=== PATIENT | male | born 1975 | race Caucasian/White ===

== ENCOUNTER 2017-05-16 10:30 | Day surgery (SDC) | payer OTHER ==
[2017-05-12 10:18] LABS: HEMATOCRIT 47.3 % (37.9-51.0); HEMOGLOBIN 16.6 g/dL (13.5-17.0); MEAN CORPUSCULAR HEMOGLOBIN 31.9 pg (27.0-33.4); MEAN CORPUSCULAR HGB CONC 35.1 g/dL (32.0-36.0); MEAN CORPUSCULAR VOLUME 91 fl (80-97); PLATELET COUNT 230 10^3/uL (150-450); WHITE BLOOD COUNT 8.8 10^3/uL (4.0-10.5)
[2017-05-12 10:41] LABS: ANION GAP 11 (5-19); BLOOD UREA NITROGEN 14 mg/dL (7-20); CALCIUM 10.2 mg/dL (8.4-10.2); CARBON DIOXIDE 21 mmol/L (22-30); CHLORIDE 108 mmol/L (98-107); GLUCOSE 88 mg/dL (75-110); POTASSIUM 4.9 mmol/L (3.6-5.0)
--- NOTE | 2017-05-12 12:36 | EKG REPORT ---
SEVERITY:- NORMAL ECG - SINUS RHYTHM : Confirmed by: Steven Gonzalez MD 12-May-2017 12:35:46
[~2017-05-16 10:30] MED LIST: ACETAMINOPHEN 325 MG TABLET PO PRN; CEFAZOLIN 2 GM/D5W RTU 2 GM/50 ML RTUPB IV PRN; DEXAMETHASONE SOD PHOSPHATE INJ 4 MG/1 ML VIAL ONE; KETOROLAC TROMETHAMINE 60 MG/2 ML SDV ONE; LACTATED RINGERS 1000 ML IV PRN; LIDOCAINE 0.5% INJ-PF (5 MG/ML) 50 ML SDV SUBCUT PRN; LIDOCAINE 2% INJ-PF (20 MG/ML) 2 ML AMPUL ONE; METOCLOPRAMIDE HCL INJ/PF 10 MG/2 ML SDV ONE; ONDANSETRON HCL INJ/PF 4 MG/2 ML SDV ONE; SUCCINYLCHOLINE CHLORIDE INJ 200 MG/10 ML VIAL ONE
[2017-05-16] MEDS ORDERED: BUPIVACAINE HCL 0.25 % INJ/PF (2.5 MG/1 ML) 30 ML VIAL ONE (10:43)
[2017-05-16] MEDS ORDERED: FENTANYL CITRATE INJ/PF 100 MCG/2 ML AMPUL ONE (13:19)
[2017-05-16] MEDS ORDERED: MIDAZOLAM 2 MG/2 ML INJ ONE (13:19)
[2017-05-16] MEDS ORDERED: PROPOFOL INJ 200 MG/20 ML VIAL IV ONE (13:20)
[2017-05-16] MEDS ORDERED: EPHEDRINE SULFATE INJ 50 MG/1 ML AMPULE ONE (13:20)
[2017-05-16] MEDS ORDERED: ACETAMINOPHEN 100 ML IV ONE ×2 (13:20)
--- NOTE | 2017-05-16 15:00 | Operative Report ---
Operative Report DATE OF SURGERY: 05/16/17 PREOPERATIVE DIAGNOSIS: Left inguinal hernia POSTOPERATIVE DIAGNOSIS: Left inguinal hernia OPERATION: Left inguinal hernia repair with mesh SURGEON: RODRIGO EGAN ANESTHESIA: GA TISSUE REMOVED OR ALTERED: Hernia sac COMPLICATIONS: None ESTIMATED BLOOD LOSS: Minimal INTRAOPERATIVE FINDINGS: Indirect inguinal hernia PROCEDURE: Informed consent was obtained. Patient was brought to the operating room placed on the operating room table in the supine position. After satisfactory induction of general anesthesia, patient's left groin was prepped and draped in usual sterile fashion. A transverse left groin incision was made. Dissection was carried down and the external oblique was opened along its fascial fibers thus opening the external inguinal ring. The cord was mobilized at the pubic tubercle. The ilioinguinal nerve was identified and preserved during the dissection. Dissection at the anterior aspect of the cord revealed an indirect inguinal hernia sac. The hernia sac was dissected to the level of the internal ring. Hernia sac was thick. It was opened. There were no incarcerated contents. High ligation of the sac was then performed at the level of the internal ring and the sac was excised. 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 The sling ends were brought back together in a sling-like configuration thus re-creating the internal inguinal ring. The mesh laid flat with excellent coverage. A single fixation suture was placed at the pubic tubercle. Hemostasis appeared excellent. Marcaine was injected. The external oblique was closed over the repair and the cord structures using running Vicryl suture. Venkatesh's fascia was closed with interrupted Vicryl sutures. Skin was closed with subcuticular running Monocryl suture. Patient tolerated procedure well with no apparent complications and was taken to the recovery area in stable condition.
[2017-05-16] MEDS ORDERED: OXYCODONE-ACETAMINOPHEN 5-325 MG TABLET PO PRN (15:03)
[2017-05-16] MEDS ORDERED: RINGERS SOLUTION,LACTATED 1,000 ML IV PRN (15:03)
[2017-05-16] MEDS ORDERED: ONDANSETRON HCL INJ/PF 4 MG/2 ML SDV IV PRN ×2 (15:03→15:14)
--- NOTE | 2017-05-16 15:03 | PDOC DISCHARGE SUMMARY ---
Discharge Summary (SDC) - Discharge Final Diagnosis: Left inguinal hernia Date of Surgery: 05/16/17 Discharge Date: 05/16/17 Condition: Good Treatment or Instructions: Left inguinal hernia repair with mesh. May discharge patient home when met discharge criteria. Follow-up with me in 2 weeks. Stay active but avoid strenuous activity. May shower tomorrow night. Keep Steri-Strips on. Prescriptions: Oxycodone HCl/Acetaminophen [Percocet 5-325 mg Tablet] 1 tab PO ASDIR PRN #25 tablet PRN Reason: Referrals: LEYDA FUNES MD [Primary Care Provider] - Discharge Diet: As Tolerated Discharge Activity: Activity As Tolerated - Stay active but avoid strenuous activity. Report the Following to Your Physician Immediately: Unusual Bleeding, Redness, Drainage-Foul Smelling
[2017-05-16] MEDS ORDERED: MEPERIDINE HCL/PF INJ 25 MG/1 ML DISP.SYRIN IV PRN (15:14)
[2017-05-16] MEDS ORDERED: FENTANYL CITRATE INJ/PF 100 MCG/2 ML AMPUL IV PRN ×3 (15:14)
[2017-05-16] MEDS ORDERED: PROMETHAZINE HCL INJ 25 MG/1 ML VIAL IV PRN ×2 (15:14)
[2017-05-16] MEDS ORDERED: DIPHENHYDRAMINE HCL 50 MG/ML VIAL IV PRN (15:14)
[2017-05-16] MEDS: FENTANYL CITRATE INJ/PF 100 MCG/2 ML AMPUL ONE ×3 (15:18→15:25)
[2017-05-16] MEDS ORDERED: DEXMEDETOMIDINE INJ 80 MCG/20 ML VIAL IV ONE (15:32)
[2017-05-16 17:14] VITALS: BP 122/79
== END 2017-05-16 17:19 | disposition home or self-care (01) ==
LOC: OROUT 10:30
PROVIDERS: ATTEND Surgery
PROC: 0YU60JZ Supplement Left Inguinal Region with Synthetic Substitute, Open Approach (ICD-10-PCS; principal; 2017-05-16 13:00)
DX: K40.90 Unilateral inguinal hernia, without obstruction or gangrene, not specified as recurrent (principal); F17.210 Nicotine dependence, cigarettes, uncomplicated; Z86.711 Personal history of pulmonary embolism; Z98.890 Other specified postprocedural states; Z79.899 Other long term (current) drug therapy
CPT/HCPCS: 49505; 93005; 36415; 85027; 80048; 88302 ×2; 93010; C1781; J2250; J1100; J3490 ×3; J1885; J3010; J2765; J0330; J2405; J2704; J0690; J0131; 830

== ENCOUNTER 2020-03-16 09:02 | Emergency (ER) | payer OTHER ==
--- NOTE | 2020-03-16 10:11 | ER Document Report ---
ED Medical Screen (RME) - General Chief Complaint: Leg Swelling Stated Complaint: LEFT LEG PAIN,SWELLING Time Seen by Provider: 03/16/20 10:04 Primary Care Provider: LEYDA FUNES MD [Primary Care Provider] - Follow up as needed Mode of Arrival: Ambulatory Information source: Patient Notes: HPI; 45-year-old male with no previous medical problems presents to the emergency room complaining of left calf pain and swelling for the past 2 days. States he had a similar episode about 6 weeks ago states started to elevated as much as possible symptoms finally resolved after 2 weeks. Started and again on Monday. He denies any recent travel. He denies any history of DVTs or PEs. Does have a family history of factor V and DVTs. Denies any trauma or injury. Denies any shortness of breath or difficulty breathing. PE: Alert and oriented x3. Lungs: Clear to auscultation without rales, rhonchi, wheezes. Heart: Regular rate rhythm without murmurs, rubs, gallops. Left calf with moderate amount of swelling 2+ pitting edema. Positive Homans. Left calf significantly larger than the right. I have greeted and performed a rapid initial assessment of this patient. A comprehensive ED assessment and evaluation of the patient, analysis of test results and completion of the medical decision making process will be conducted by additional ED providers. I have specifically instructed the patient or family members with the patient to immediately return to any nursing staff should anything change in the patient's condition or with their chief complaint. TRAVEL OUTSIDE OF THE [place] IN LAST 30 DAYS: No - Related Data Allergies/Adverse Reactions: No Known Allergies Allergy (Unverified 05/12/17 09:16) Past Medical History - Social History Frequency of alcohol use: Occasional - Past Medical History Cardiac Medical History: Denies: Hx Coronary Artery Disease, Hx Heart Attack, Hx Hypertension Pulmonary Medical History: Reports: Hx Pneumonia - YRS AGO Denies: Hx Asthma, Hx Bronchitis, Hx COPD Neurological Medical History: Denies: Hx Cerebrovascular Accident, Hx Seizures Musculoskeltal Medical History: Reports Hx Arthritis - GEN, SHOULDERS - Immunizations Hx Diphtheria, Pertussis, Tetanus Vaccination: Yes Physical Exam - Vital signs Vitals: Temp Pulse Resp BP Pulse Ox 97.9 F 75 16 141/95 H 97 03/16/20 09:21 03/16/20 09:21 03/16/20 09:21 03/16/20 09:21 03/16/20 09:21 Course - Vital Signs Vital signs: Temp Pulse Resp BP Pulse Ox 97.9 F 75 16 141/95 H 97 03/16/20 09:21 03/16/20 09:21 03/16/20 09:21 03/16/20 09:21 03/16/20 09:21 Doctor's Discharge - Discharge Referrals: LEYDA FUNES MD [Primary Care Provider] - Follow up as needed
--- NOTE | 2020-03-16 11:39 | ER Document Report ---
ED Extremity Problem, Lower - General Chief Complaint: Leg Swelling Stated Complaint: LEFT LEG PAIN,SWELLING Time Seen by Provider: 03/16/20 10:04 Primary Care Provider: EDITH STEEL MD [ACTIVE STAFF] - Follow up in 3-5 days LEYDA FUNES MD [Primary Care Provider] - Follow up in 3-5 days Mode of Arrival: Ambulatory TRAVEL OUTSIDE OF THE [place] IN LAST 30 DAYS: No - HPI Notes: Patient is a 45-year-old male with no significant past medical history who presents with left leg pain and swelling. He states symptoms began on Monday. He denies injury. He was sitting in his chair when he felt the pain and the swelling. He mentioned a similar episode 3 weeks ago that resolved on its own. Patient denies fevers or chills. No chest pain or shortness of breath. He has a family history of factor V Leiden and blood clots in the family but he does not think he has ever had one. He does mention an episode at age 19 where they thought he had a blood clot but it was never confirmed. - Related Data Allergies/Adverse Reactions: No Known Allergies Allergy (Unverified 05/12/17 09:16) Past Medical History - General Information source: Patient - Social History Smoking Status: Current Every Day Smoker Frequency of alcohol use: Occasional Family History: Reviewed & Not Pertinent - Past Medical History Cardiac Medical History: Denies: Hx Coronary Artery Disease, Hx Heart Attack, Hx Hypertension Pulmonary Medical History: Reports: Hx Pneumonia - YRS AGO Denies: Hx Asthma, Hx Bronchitis, Hx COPD Neurological Medical History: Denies: Hx Cerebrovascular Accident, Hx Seizures Musculoskeletal Medical History: Reports Hx Arthritis - GEN, SHOULDERS - Immunizations Hx Diphtheria, Pertussis, Tetanus Vaccination: Yes Review of Systems - Review of Systems Notes: CONSTITUTIONAL: No fever, fatigue or weight loss. CARDIOVASCULAR: No chest pain or edema. RESPIRATORY: No cough, shortness of breath, congestion, or wheezing. GASTROINTESTINAL: No abdominal pain, nausea, vomiting, bloody stools or diarrhea. MUSCULOSKELETAL: No joint pain or swelling. Positive for left leg pain. NEUROLOGIC: No seizures. No headache, focal weakness or sensory changes. HEMATOLOGIC: No unusual bruising or bleeding. PSYCHIATRIC: No depression or anxiety. Physical Exam - Vital signs Vitals: Temp Pulse Resp BP Pulse Ox 97.9 F 75 16 141/95 H 97 03/16/20 09:21 03/16/20 09:21 03/16/20 09:21 03/16/20 09:21 03/16/20 09:21 - General General appearance: Appears well Notes: VITAL SIGNS: Within normal limits. GENERAL: No acute distress, non-toxic appearance. HEAD: Normal with no signs of head trauma. EYES: Conjunctiva normal, no discharge. EARS: Hearing grossly intact. NECK: Normal range of motion, no tenderness, supple, no lymphadenopathy, No adenopathy, no JVD. CHEST: Clear breath sounds bilaterally. No wheezes, rales, or rhonchi. CARDIAC: Regular rate and rhythm. ABDOMEN: Normal and soft. MUSCULOSKELETAL: Good range of motion of all major joints. Positive Homans signs on the left. Compartments are soft. Strong bilateral dorsalis pedis p ulses. Cap refill is less than 2. NEUROLOGICAL: Alert and oriented x 3. No focal sensory or strength deficits. Speech normal. Follows commands appropriately. PSYCHIATRIC: Normal Affect, judgement and mood. SKIN: Normal appearance with no rashes or lesions. Course - Re-evaluation Re-evalutation: 03/16/20 17:47 Patient is positive for a DVT. He has no chest pain or shortness of breath so I have low suspicion for PE. Discussed with oncology, Dr. Steel, who agreed with outpatient management. He will be started on Eliquis. Patient was given strict return precautions. He was given a small prescription for hydrocodone after checking his [employer]. Patient was told to follow-up with either oncology or his PCP for Eliquis management. He is very agreeable to this. He was given strict return precautions. - Vital Signs Vital signs: Temp Pulse Resp BP Pulse Ox 97.8 F 75 17 127/95 H 96 03/16/20 15:03 03/16/20 09:21 03/16/20 12:09 03/16/20 12:09 03/16/20 12:09 - Laboratory Result Diagrams: 03/16/20 12:00 03/16/20 12:00 Laboratory results interpreted by me: 03/16/20 12:00 Sodium 136.8 L ALT 71 H Discharge - Discharge Clinical Impression: Deep vein thrombosis, lower left extremity Qualifiers: Affected thrombotic vein of extremity: popliteal Chronicity: acute Qualified Code(s): I82.432 - Acute embolism and thrombosis of left popliteal vein Condition: Stable Disposition: HOME, SELF-CARE Instructions: DVT Outpatient Treatment ([facility]) Additional Instructions: Please take your medication as prescribed. You will need to follow-up with your primary care doctor or oncology within 7 days. They will need to refill your El iquis and decide how long you should be on it for. Please return to the ER for any worsening symptoms, chest pain, shortness of breath. Prescriptions: Apixaban [Eliquis 5 mg Tablet] 10 mg PO BID 7 Days #28 tablet Apixaban [Eliquis 5 mg Tablet] 5 mg PO BID 23 Days #46 tablet Hydrocodone/Acetaminophen [[place] 5-325 Tablet] 1 each PO Q8H PRN 10 Days #8 tablet PRN Reason: Forms: Return to Work Referrals: LEYDA FUNES MD [Primary Care Provider] - Follow up in 3-5 days EDITH STEEL MD [ACTIVE STAFF] - Follow up in 3-5 days
--- NOTE | 2020-03-16 12:15 | RADIOLOGY REPORT (SQ) ---
EXAM DESCRIPTION: VENOUS UNILATERAL LOWER IMAGES COMPLETED DATE/TIME: 03/16/2020 12:03 pm REASON FOR STUDY: left calf swellling and pain COMPARISON: None. TECHNIQUE: Dynamic and static estrada scale and color images acquired of the left leg venous system. Se lected spectral images acquired with additional compression and augmentation maneuvers. The contralat eral common femoral vein and saphenofemoral junction were also imaged. Images stored on PACS. LIMITATIONS: None. FINDINGS: COMMON FEMORAL: Normal phasicity, compression and augmentation. No visualized echogenic ma terial on estrada scale. No defects on color images. FEMORAL: Normal compression and augmentation. No visualized echogenic material on estrada scale. No defe cts on color images. POPLITEAL: Occlusive thrombus extends from the popliteal vein down into the calf veins. The vessels are noncompressible. GSV and SSV: Normal compression, augmentation. No visualized echogenic material on estrada scale. No def ects on color images. ANY DEEP VENOUS INSUFFICIENCY: Not evaluated. ANY EVIDENCE OF POPLITEAL CYST: No. OTHER: No other significant finding. CONTRALATERAL COMMON FEMORAL VEIN: Normal phasicity, compression and augmentation. No visualized echogenic material on estrada scale. No de fects on color images. IMPRESSION: 1. POSITIVE EXAM. Occlusive acute thrombus extends from the left popliteal vein down i nto the calf veins. COMMENT: 1. The results of this examination were discussed with Dr. Rios on 03/16/2020. TECHNICAL DOCUMENTATION: JOB ID: [id number] 2010 [employer] ([employer]- All Rights Reserved Reading location - IP/workstation name: [email or web address]
[2020-03-16 12:20] LABS: ABSOLUTE BASOPHILS # (AUTO) 0.1 10^3/uL (0.0-0.2); ABSOLUTE EOSINOPHILS # (AUTO) 0.5 10^3/uL (0.0-0.6); ABSOLUTE LYMPHOCYTES (AUTO) 2.5 10^3/uL (0.5-4.7); ABSOLUTE MONOCYTES (AUTO) 0.8 10^3/uL (0.1-1.4); ABSOLUTE NEUT (AUTO) 6.5 10^3/uL (1.7-8.2); BASOPHILS % (AUTO) 0.7 % (0-2); EOSINOPHILS % (AUTO) 4.5 % (0-6); HEMATOCRIT 44.5 % (37.9-51.0); HEMOGLOBIN 15.3 g/dL (13.5-17.0); LYMPHOCYTES % (AUTO) 24.5 % (13-45); MEAN CORPUSCULAR HEMOGLOBIN 31.5 pg (27.0-33.4); MEAN CORPUSCULAR HGB CONC 34.3 g/dL (32.0-36.0); MEAN CORPUSCULAR VOLUME 92 fl (80-97); MONOCYTES % (AUTO) 7.5 % (3-13); PLATELET COUNT 183 10^3/uL (150-450); RED BLOOD COUNT 4.84 10^6/uL (4.35-5.55); RED CELL DISTRIBUTION WIDTH 13.1 % (11.5-14.0); SEGMENTED NEUTROPHILS % (AUTO) 62.8 % (42-78); TOTAL CELLS COUNTED % (AUTO) 100 %; WHITE BLOOD COUNT 10.3 10^3/uL (4.0-10.5)
[2020-03-16 12:25] LABS: INTERNATIONAL RATION (INR) 0.84; PROTHROMBIN TIME 11.7 SEC (11.4-15.4)
[2020-03-16 12:34] LABS: ALBUMIN 4.4 g/dL (3.5-5.0); ALKALINE PHOSPHATASE 80 U/L (38-126); ANION GAP 7 (5-19); ASPARTATE AMINO TRANSFERASE 48 U/L (17-59); BILIRUBIN,DIRECT 0.1 mg/dL (0.0-0.4); BILIRUBIN,TOTAL 0.4 mg/dL (0.2-1.3); BLOOD UREA NITROGEN 13 mg/dL (7-20); CALCIUM 9.7 mg/dL (8.4-10.2); CARBON DIOXIDE 26 mmol/L (22-30); CHLORIDE 104 mmol/L (98-107); GLUCOSE 86 mg/dL (75-110); POTASSIUM 4.4 mmol/L (3.6-5.0); TOTAL PROTEIN 7.2 g/dL (6.3-8.2)
[2020-03-16 12:48] VITALS: BP 127/95
[2020-03-16] MEDS ORDERED: APIXABAN 5 MG TABLET PO ONE (13:19)
== END 2020-03-16 13:40 | disposition home or self-care (01) ==
LOC: ER 09:02
DX: I82.432 Acute embolism and thrombosis of left popliteal vein (principal); M79.89 Other specified soft tissue disorders; M79.605 Pain in left leg; F17.200 Nicotine dependence, unspecified, uncomplicated
CPT/HCPCS: 36415; 80053; 85025; 85610; 93971; 99284